=== PATIENT | female | born 1950 ===

== ENCOUNTER 2017-07-29 08:08 | Day surgery (SDC) | payer MEDICARE ==
[2015-11-08 10:58] VITALS: BMI 30.9
[2017-07-29] MEDS ORDERED: Lactated Ringer's 500 ML IV ONE (11:35)
--- NOTE | 2017-07-29 11:38 | CP.SDSHP ---
Same Day Surgery H & P - History Proposed Procedure: colon Pre-Op Diagnosis: screen - Previous Medical/Surgical History Comments: SLE - Allergies Allergies: Allergies No Known Allergies Allergy (Unverified 07/29/17 08:51) - Physical Exam Vital Signs: Vital Signs 07/29/17 08:30 Temperature 98.9 F Pulse Rate 66 Respiratory 19 Rate Blood Pressure 170/93 H O2 Sat by Pulse 97 Oximetry Mental Status: Alert & Oriented x3 Neuro: WNL Heart: WNL Lungs: WNL GI: WNL - {Optional Preform as Required} Abdomen: WNL - Impression Impression: screen Pt. Evaluated Today:Candidate for Anesthesia & Procedure: Yes - Date & Time Date: 07/29/17 Time: 11:37 Short Stay Discharge - Short Stay Discharge Admitting Diagnosis/Reason for Visit: ENCOUNTER FOR SCREENING FOR MALIGNANT NEOPLASM OF Disposition: HOME/ ROUTINE
--- NOTE | 2017-07-29 12:27 | CP.SDSHP ---
Same Day Surgery H & P - History Proposed Procedure: colonosocpy Pre-Op Diagnosis: screen - Previous Medical/Surgical History Cardiac: Hypertension, ASHD/CAD - Allergies Allergies: Allergies No Known Allergies Allergy (Unverified 07/29/17 08:51) - Physical Exam Vital Signs: Vital Signs 07/29/17 07/29/17 08:30 11:43 Temperature 98.9 F 98.9 F Pulse Rate 66 77 Respiratory 19 19 Rate Blood Pressure 170/93 H 110/74 O2 Sat by Pulse 97 100 Oximetry Mental Status: Alert & Oriented x3 Neuro: WNL Heart: WNL Lungs: WNL GI: WNL - {Optional Preform as Required} Abdomen: WNL - Impression Impression: screen Pt. Evaluated Today:Candidate for Anesthesia & Procedure: Yes - Date & Time Date: 07/29/17 Time: 12:15 Short Stay Discharge - Short Stay Discharge Admitting Diagnosis/Reason for Visit: ENCOUNTER FOR SCREENING FOR MALIGNANT NEOPLASM OF Disposition: HOME/ ROUTINE
[2017-07-29 12:41] VITALS: O2SAT 94
[2017-07-29 13:07] VITALS: BP 111/73; PULSE 71; RESP 14; TEMP 98.4
== END 2017-07-29 13:58 | disposition home or self-care (01) ==
LOC: C.ENDO 08:08
PROVIDERS: ATTEND Internal Medicine Gastroenterology
DX: K63.5 Polyp of colon (principal); Z12.11 Encounter for screening for malignant neoplasm of colon; K62.1 Rectal polyp; K57.30 Diverticulosis of large intestine without perforation or abscess without bleeding
CPT/HCPCS: 45380; 45384; 88305; J7120